=== PATIENT | female | born 1985 | race Caucasian/White ===

== ENCOUNTER 2016-10-11 21:39 | Emergency (ER) | payer MEDICAID ==
[~2016-10-11] VITALS: Ht 149.9 cm; Wt 73.0 kg
[~2016-10-11 21:39] MED LIST: ACET500C5 PO; CETI10CA PO; GUAI118L94 PO; IBUP-1542 PO
[2016-10-11 21:43] VITALS: Ht 149.9 cm; Wt 73.0 kg
[2016-10-11] MEDS ORDERED: ACETAMINOPHEN 500 MG TAB PO STA (23:13)
--- NOTE | 2016-10-11 23:30 | ERD ---
ER Documentation Chief Complaint Date/Time DATE: 10/11/16 TIME: 23:29 Chief Complaint 8 wks with vag. bleed x 5 days. HPI 31-year-old female presents to emergency department for complains of pelvic pain and vaginal bleeding for 5 days. Patient's approximate 8 weeks . Patient states that she fell yesterday on her knees, she was worried about her baby. Patient denies any knee pain at this time. Patient is complains of pelvic pain, cramping pain, 4/10 scale, accompanying the vaginal bleeding, patient states that she is spotting. Patient denies any flank pain. Patient denies any fever or chills. Patient denies any nausea vomiting. Patient did not take any medications for pain. ROS All systems reviewed and are negative except as per history of present illness. Medications Home Meds Active Scripts Acetaminophen* (Tylophen*) 500 Mg Capsule, 1 CAP PO Q6H Y for PAIN AND OR ELEVATED TEMP, #20 CAP Prov:BOGDAN BRYAN NP 11/05/15 Ibuprofen* (Motrin*) 600 Mg Tab, 600 MG PO Q6H Y for PAIN AND OR ELEVATED TEMP, #30 TAB Prov:BOGDAN BRYAN NP 11/05/15 Cetirizine Hcl* (Zyrtec*) 10 Mg Capsule, 10 MG PO DAILY, #30 TAB.CHEW Prov:BOGDAN BRYAN NP 11/05/15 Guaifenesin-Codeine Phosphate* (Guaifenesin* with Codeine Liq) 120 Ml Liquid, 5 ML PO Q4H for COUGH, #120 ML Prov:BOGDAN BRYAN NP 11/05/15 Reported Medications [none] Unknown Strength No Conflict Check 11/05/15 Allergies Allergies: Coded Allergies: No Known Allergy (Unverified , 11/05/15) PMhx/Soc Medical and Surgical Hx: pt denies Surgical Hx History of Surgery: No Anesthesia Reaction: No Hx Neurological Disorder: No Hx Respiratory Disorders: No Hx Cardiac Disorders: No Hx Psychiatric Problems: No Hx Miscellaneous Medical Probl: Yes (DM) Hx Alcohol Use: No Hx Substance Use: No Hx Tobacco Use: No Smoking Status: Never smoker FmHx Family History: No coronary disease, No diabetes, No other Physical Exam Vitals Vital Signs Date Time Temp Pulse Resp B/P Pulse Ox O2 Delivery O2 Flow Rate FiO2 10/11/16 21:43 99.3 90 20 167/92 99 Physical Exam GENERAL: The patient is well developed and appropriate for usual state of health, in no apparent distress. CHEST: Clear to auscultation bilaterally. There are no rales, wheezes or rhonchi. HEART: Regular rate and rhythm. No murmurs, clicks, rubs or gallops. No S3 or S4. ABDOMEN: Soft, nontender and nondistended. Good bowel sounds. No rebound or guarding. No gross peritonitis. No gross organomegaly or masses. No Pastor sign or McBurney point tenderness. BACK: No midline or flank tenderness. EXTREMITIES: Equal pulses bilaterally. There is no peripheral clubbing, cyanosis or edema. No focal swelling or erythema. Full range of motion. Grossly neurovascularly intact. NEURO: Alert and oriented. Cranial nerves 2-12 intact. Motor strength in all 4 extremities with 5/5 strength. Sensation grossly intact. Normal speech and gait. SKIN: There is no apparent rash or petechia. The skin is warm and dry. HEMATOLOGIC AND LYMPHATIC: There is no evidence of excessive bruising or lymphedema. No gross cervical, axillary, or inguinal lymphadenopathy. VAGINAL: Small amount of blood in the vaginal vault, no cervical motion tenderness or adnexal tenderness noted. Cervical os is closed. Result Diagram: 10/11/16 2330 Results 24 hrs Laboratory Tests Test 10/11/16 23:23 10/11/16 23:30 Urine Bacteria FEW Urine Bilirubin NEGATIVE Urine Clarity SL HAZY Urine Color LT. YELLOW Urine Glucose NEGATIVE% Urine Hemoglobin 3+ Urine Ketones NEGATIVE Urine Leukocyte Esterase 1+ Urine Microscopic RBC 5-10/HPF Urine Microscopic WBC 5-10/HPF Urine Nitrite NEGATIVE Urine Specific [place] <=1.005 Urine Squamous Epithelial Cells FEW Urine Total Protein NEGATIVE Urine Urobilinogen 0.2 E.U./dL Urine pH 6.0 Basophils # 0.010^3/ul Basophils % 0.3% Beta HCG, Quantitative 8368.9mIU/ml Eosinophils # 0.210^3/ul Eosinophils % 2.4% Hematocrit 38.9% Hemoglobin 13.4g/dl Lymphocytes # 3.210^3/ul Lymphocytes % 37.8% Mean Corpuscular Hemoglobin 30.2pg Mean Corpuscular Hemoglobin Concent 34.5g/dl Mean Corpuscular Volume 87.8fl Mean Platelet Volume 8.1fl Monocytes # 0.610^3/ul Monocytes % 7.1% Neutrophils # 4.510^3/ul Neutrophils % 52.4% Nucleated Red Blood Cells # 0.010^3/ul Nucleated Red Blood Cells % 0.0/100WBC Platelet Count 07303^3/UL Red Blood Count 4.4410^6/ul Red Cell Distribution Width 12.1% White Blood Count 8.510^3/ul Current Medications Medications (Trade) Dose Ordered Sig/Jayna Route PRN Reason Start Time Stop Time Status Last Admin Dose Admin Acetaminophen (Tylenol Tab) 500 mg ONCE STAT PO 10/11/16 23:13 10/11/16 23:14 DC 10/11/16 23:24 Patient was given medication for pain here in emergency department, after treatment, patient verbalized feeling much better. Patient's pain is improved. PROCEDURE: Obstetrical ultrasound. CLINICAL INDICATION: Vaginal bleeding. TECHNIQUE: Multiple sonographic images of the pelvis were obtained with transabdominal and endovaginal technique. Images were obtained with arrington scale and color Doppler. COMPARISON: None. FINDINGS: There is an intrauterine gestational sac with no pole or yolk sac identified. The mean sac diameter averages 2.00 cm, compatible with 6 weeks and 6 days gestation. No subchorionic collection is identified. There is no pelvic free fluid. The right ovary measures 3.4 x 2.2 x 2.8 cm and the left ovary measures 2.8 x 1.4 x 1.9 cm. There is normal flow to both ovaries. There is no suspicious adnexal mass identified. IMPRESSION: Intrauterine gestational sac with no pole or yolk sac identified, compatible with 6 weeks and 6 days. Short-term follow-up ultrasound is recommended. .Cecil Landa MD, MD Date Time Electronically viewed and signed by .Cecil Landa MD, MD on 10/12/2016 00:30 .T/ CC: BOGDAN BRYAN [employer] Procedures/MDM Medical Decision Making: Patients vaginal bleeding is most likely consistent of possible threatened . Patient does not show any evidence of hypovolemic shock. Patients hemoglobin and hematocrit is stable. There is low suspicion for ectopic . JOSÉ MANUEL results show 6 weeks no pole or sac, possible early BetaHCG Quantitative is3 for The patient is Rh+, does not need RhoGAM this time. There is no signs of symptoms of dehydration. There is low suspicion for sepsis. Patient appears well and is hemodynamically stable. Patient also has urinary tract infection will be also treated for this. No symptoms of pyelonephritis. Disposition: Home. Condition: Stable Disposition: Tylenol, Keflex Instructions: Patient is advised to do bed rest, avoid heavy lifting, and avoid having sex until cleared by OB doctor. Patient is advised to follow up with OB doctor or here at the ER in 48 hours for reevaluation of symptoms, repeat beta HCG quantitative and ultrasound. Patient is advised that is symptoms are worst, severe bleeding, dizziness, severe abdominal pain, fever, worst signs and symptoms to return to the emergency department immediately. Departure Diagnosis: Primary Impression: Vaginal bleeding Additional Impressions: Intrauterine UTI (urinary tract infection) Urinary tract infection type: acute cystitis Hematuria presence: without hematuria Qualified Code: N30.00 - Acute cystitis without hematuria Condition: Stable Patient Instructions: Possible Miscarriage (Threatened ), Understanding Urinary Tract Infections (UTIs) Additional Instructions: Patient is advised to do bed rest, avoid heavy lifting, and avoid having sex until cleared by OB doctor. Patient is advised to follow up with OB doctor or here at the ER in 48 hours for reevaluation of symptoms, repeat beta HCG quantitative and ultrasound. Patient is advised that is symptoms are worst, severe bleeding, dizziness, severe abdominal pain, fever, worst signs and symptoms to return to the emergency department immediately. BOGDAN BRYAN NP Oct 11, 2016 23:30
[2016-10-12 00:16] LABS: ADD UMIC YES; URINE BILIRUBIN (Dip) NEGATIVE (NEGATIVE); URINE BLOOD (Dip) 3+ (NEGATIVE); URINE COLOR LT. YELLOW (YELLOW); URINE GLUCOSE (Dip) NEGATIVE (NEGATIVE); URINE KETONES (Dip) NEGATIVE (NEGATIVE); URINE LEUKOCYTE ESTERASE (Dip) 1+ (NEGATIVE); URINE NITRITE (Dip) NEGATIVE (NEGATIVE); URINE TOTAL PROTEIN (Dip) NEGATIVE (NEGATIVE); URINE UROBILINOGEN (Dip) 0.2 E.U./dL (0.1-1.0)
--- NOTE | 2016-10-12 00:30 | RADRPT ---
PROCEDURE: Obstetrical ultrasound. CLINICAL INDICATION: Vaginal bleeding. TECHNIQUE: Multiple sonographic images of the pelvis were obtained with transabdominal and endova ginal technique. Images were obtained with arrington scale and color Doppler. COMPARISON: None. FINDINGS: There is an intrauterine gestational sac with no pole or yolk sac identified. The mean sac di ameter averages 2.00 cm, compatible with 6 weeks and 6 days gestation. No subchorionic collection i s identified. There is no pelvic free fluid. The right ovary measures 3.4 x 2.2 x 2.8 cm and the left ovary measu res 2.8 x 1.4 x 1.9 cm. There is normal flow to both ovaries. There is no suspicious adnexal mass identified. IMPRESSION: Intrauterine gestational sac with no pole or yolk sac identified, compatible with 6 weeks and 6 days. Short-term follow-up ultrasound is recommended. .Cecil Landa MD, MD Date Time Electronically viewed and signed by .Cecil Landa MD, on 10/12/2016 00:30 .T/
[2016-10-12 00:35] LABS: BACTERIA,URINE FEW; SQUAMOUS EPITHELIAL CELL,UR FEW
[2016-10-12 00:44] LABS: BASOPHILS % 0.3 % (0.0-2.0); EOSINOPHILS # 0.2 10^3/ul (0.0-0.5); EOSINOPHILS % 2.4 % (0.0-7.0); HEMATOCRIT 38.9 % (37.0-47.0); HEMOGLOBIN 13.4 g/dl (12.0-16.0); LYMPHOCYTES # 3.2 10^3/ul (0.8-2.9); LYMPHOCYTES % 37.8 % (15.0-51.0); MEAN CORPUSCULAR HEMOGLOBIN 30.2 pg (29.0-33.0); MEAN CORPUSCULAR HGB CONC 34.5 g/dl (32.0-37.0); MEAN CORPUSCULAR VOLUME 87.8 fl (82.0-101.0); MEAN PLATELET VOLUME 8.1 fl (7.4-10.4); MONOCYTE # 0.6 10^3/ul (0.3-0.9); MONOCYTES % 7.1 % (0.0-11.0); NEUTROPHIL # 4.5 10^3/ul (1.6-7.5); NEUTROPHILS % 52.4 % (39.0-77.0); PLATELET COUNT 292 10^3/UL (140-440); RED BLOOD COUNT 4.44 10^6/ul (4.20-5.40); RED CELL DISTRIBUTION WIDTH 12.1 % (11.5-14.5); UNCORRECTED WBC 8.5 10^3/ul (4.8-10.8); WHITE BLOOD COUNT 8.5 10^3/ul (4.8-10.8)
[2016-10-12 00:45] LABS: CONDITION 1
[2016-10-12] MEDS ORDERED: ACET500C5 PO (01:09)
[2016-10-12] MEDS ORDERED: CEPH-443 PO (01:09)
[2016-10-12 01:19] VITALS: BP 119/80; PULSE 84; RESP 18; TEMP 97.9
== END 2016-10-12 02:17 | disposition home or self-care (01) ==
LOC: FTE 21:39
DX: O20.9 Hemorrhage in early pregnancy, unspecified (principal); O23.11 Infections of bladder in pregnancy, first trimester; O24.111 Pre-existing type 2 diabetes mellitus, in pregnancy, first trimester; R10.2 Pelvic and perineal pain; Z3A.01 Less than 8 weeks gestation of pregnancy
CPT/HCPCS: 36415; 76801; 76817; 81001; 81003; 84702; 85025; 86900; 86901; Z7502; Z7610

== ENCOUNTER 2016-10-15 21:22 | Emergency (ER) | payer MEDICAID ==
[~2016-10-15] VITALS: Ht 152.4 cm; Wt 73.5 kg
[~2016-10-15 21:22] MED LIST changes: +CEPH-443 PO
[2016-10-15 21:27] VITALS: Ht 152.4 cm; Wt 73.5 kg
[2016-10-15] MEDS ORDERED: SOD CHLORIDE 0.9% 1,000 ML IV STA (22:41)
[2016-10-15] MEDS ORDERED: morphine 2 MG INJ IV ONE (23:00)
[2016-10-15 23:45] LABS: BASOPHILS % 0.4 % (0.0-2.0); EOSINOPHILS # 0.1 10^3/ul (0.0-0.5); EOSINOPHILS % 1.7 % (0.0-7.0); HEMATOCRIT 40.9 % (37.0-47.0); HEMOGLOBIN 14.1 g/dl (12.0-16.0); LYMPHOCYTES # 3.4 10^3/ul (0.8-2.9); MEAN CORPUSCULAR HEMOGLOBIN 30.6 pg (29.0-33.0); MEAN CORPUSCULAR HGB CONC 34.5 g/dl (32.0-37.0); MEAN CORPUSCULAR VOLUME 88.9 fl (82.0-101.0); MONOCYTE # 0.6 10^3/ul (0.3-0.9); MONOCYTES % 6.7 % (0.0-11.0); NEUTROPHIL # 4.7 10^3/ul (1.6-7.5); NEUTROPHILS % 53.2 % (39.0-77.0); PLATELET COUNT 282 10^3/UL (140-440); RED CELL DISTRIBUTION WIDTH 12.6 % (11.5-14.5); UNCORRECTED WBC 8.8 10^3/ul (4.8-10.8); WHITE BLOOD COUNT 8.8 10^3/ul (4.8-10.8)
[2016-10-15 23:48] LABS: CONDITION 1
[2016-10-15] MEDS ORDERED: morphine 4 MG/ML VIAL IV STA (23:49)
[2016-10-15] MEDS ORDERED: ONDANSETRON 4 MG INJ IV STA (23:49)
--- NOTE | 2016-10-15 23:52 | ERD ---
ER Documentation Chief Complaint Date/Time DATE: 10/15/16 TIME: 23:50 Chief Complaint 6 wks , vag bleeding w/ pelvic pain (ELHAM EPSTEIN PA-C) HPI Patient is a 31-year-old female with a past medical history of diabetes who is who presents to the ED with increase in pelvic pain and vaginal bleed. She states that she was here on Wednesday with vaginal bleed. However she states that the vaginal bleeding has increased and she has passed a lot of bleeding yesterday. However she states that her pelvic pain has increased and the Tylenol has not helped with her pain. She denies fever or chills. She denies back pain, abdominal pain, nausea, vomiting or diarrhea. She denies chest pain, cough, shortness of breath or difficulty breathing. She denies leg pain or swelling. (ELHAM EPSTEIN PA-C) ROS All systems reviewed and are negative except as per history of present illness. (ELHAM EPSTEIN PA-C) Medications Home Meds Active Scripts Hydrocodone/Acetaminophen ([place] 5-325 Tablet) 1 Each Tablet, 1 TAB PO Q6H Y for PAIN, #15 TAB Prov:SAUL THOMAS PA-C 10/16/16 Acetaminophen* (Tylophen*) 500 Mg Capsule, 1 CAP PO Q6H Y for PAIN AND OR ELEVATED TEMP, #20 CAP Prov:BOGDAN BRYAN NP 10/12/16 Cephalexin* (Keflex*) 500 Mg Capsule, 500 MG PO QID for 7 Days, CAP Prov:BOGDAN BRYAN NP 10/12/16 Acetaminophen* (Tylophen*) 500 Mg Capsule, 1 CAP PO Q6H Y for PAIN AND OR ELEVATED TEMP, #20 CAP Prov:BOGDAN BRYAN NP 11/05/15 Ibuprofen* (Motrin*) 600 Mg Tab, 600 MG PO Q6H Y for PAIN AND OR ELEVATED TEMP, #30 TAB Prov:BOGDAN BRYAN NP 11/05/15 Cetirizine Hcl* (Zyrtec*) 10 Mg Capsule, 10 MG PO DAILY, #30 TAB.CHEW Prov:BOGDAN BRYAN NP 11/05/15 Guaifenesin-Codeine Phosphate* (Guaifenesin* with Codeine Liq) 120 Ml Liquid, 5 ML PO Q4H for COUGH, #120 ML Prov:BOGDAN BRYAN NP 11/05/15 Reported Medications [none] Unknown Strength No Conflict Check 11/05/15 Allergies Allergies: Coded Allergies: No Known Allergy (Unverified , 11/05/15) PMhx/Soc History of Surgery: Yes (CS X1) Anesthesia Reaction: No Hx Neurological Disorder: No Hx Respiratory Disorders: No Hx Cardiac Disorders: No Hx Psychiatric Problems: No Hx Miscellaneous Medical Probl: Yes (DM 2) Hx Alcohol Use: No Hx Substance Use: No Hx Tobacco Use: No Smoking Status: Never smoker (ELHAM EPSTEIN PA-C) Physical Exam Vitals Vital Signs Date Time Temp Pulse Resp B/P Pulse Ox O2 Delivery O2 Flow Rate FiO2 10/15/16 21:27 98.3 93 20 133/70 100 (SAUL THOMAS PA-C) Physical Exam GENERAL: Well-developed, well-nourished female. Appears in mild distress. HEAD: Normocephalic, atraumatic. EYES: Pupils are equally reactive bilaterally. EOMs grossly intact. No conjunctival erythema. ENT: Moist mucous membranes. No uvula deviation. No kissing tonsils. No exudates. NECK: Supple. No lymphadenopathy or thyromegaly. No meningismus. negative kernig. negative brudinski. LUNG: Clear to auscultation bilaterally. No rhonchi, wheezing, rales or coarse breath sounds. HEART: Regular rate and rhythm. No murmurs, rubs or gallops. ABDOMEN: No scars, ecchymosis or rashes noted. Soft, nontender, and nondistended. Positive bowel sounds in all four quadrants. No rebound tenderness , no guarding. (-) McBurneys point tenderness. No CVA tenderness. Bilateral pelvic tenderness BACK: No midline tenderness. Extremities: Equal pulses bilaterally. No peripheral clubbing, cyanosis or edema. No unilateral leg swelling. NEUROLOGIC: Alert and oriented. Moving all four extremities. 5/5 strength in all extremities. Normal speech. Steady gait. SKIN: Normal color. Warm and dry. No rashes or lesions. Capillary refill < 2 seconds (ELHAM EPSTEIN PA-C) Result Diagram: 10/15/16 2310 Results 24 hrs Laboratory Tests Test 10/15/16 23:10 Basophils # 0.010^3/ul Basophils % 0.4% Beta HCG, Quantitative 4513.4mIU/ml Eosinophils # 0.110^3/ul Eosinophils % 1.7% Hematocrit 40.9% Hemoglobin 14.1g/dl Lymphocytes # 3.410^3/ul Lymphocytes % 38.0% Mean Corpuscular Hemoglobin 30.6pg Mean Corpuscular Hemoglobin Concent 34.5g/dl Mean Corpuscular Volume 88.9fl Mean Platelet Volume 8.0fl Monocytes # 0.610^3/ul Monocytes % 6.7% Neutrophils # 4.710^3/ul Neutrophils % 53.2% Nucleated Red Blood Cells # 0.010^3/ul Nucleated Red Blood Cells % 0.0/100WBC Platelet Count 09214^3/UL Red Blood Count 4.6010^6/ul Red Cell Distribution Width 12.6% Urine Bacteria MODERATE Urine Bilirubin NEGATIVE Urine Clarity CLOUDY Urine Color RED Urine Glucose NEGATIVE% Urine Hemoglobin 3+ Urine Ketones NEGATIVE Urine Leukocyte Esterase TRACE Urine Microscopic RBC >200/HPF Urine Microscopic WBC 5-10/HPF Urine Nitrite NEGATIVE Urine Specific [place] 1.010 Urine Squamous Epithelial Cells FEW Urine Total Protein 1+ Urine Urobilinogen 0.2 E.U./dL Urine pH 8.5 White Blood Count 8.810^3/ul Current Medications Medications (Trade) Dose Ordered Sig/Jayna Route PRN Reason Start Time Stop Time Status Last Admin Dose Admin Sodium Chloride (NS) 1,000 ml @ 1,000 mls/hr Q1H STAT IV 10/15/16 22:41 10/15/16 23:40 DC 10/15/16 22:57 Morphine Sulfate (morphine) 2 mg ONCE ONCE IV 10/15/16 23:00 10/15/16 23:01 DC 10/15/16 22:57 Morphine Sulfate (morphine) 4 mg ONCE STAT IV 10/15/16 23:49 10/15/16 23:50 DC 10/15/16 23:54 Ondansetron HCl (Zofran Inj) 4 mg ONCE STAT IV 10/15/16 23:49 10/15/16 23:50 DC 10/15/16 23:53 (SAUL THOMAS PA-C) Procedures/MDM ER COURSE: I kept the patient and/or family informed of laboratory and diagnostic imaging results throughout the emergency room course. EKG, MONITORS, & DIAGNOSTIC IMAGING: [place] [id number] Radiology Main Line: [phone] DIAGNOSTIC IMAGING REPORT Patient: LEEROY BYERS : 1985 Age: 31 Sex: F MR #: [id number] DOS: 10/15/16 2241 Ordering MD: ELHAM EPSTEIN PA-C Location: [facility] Room/Bed: PROCEDURE: US OB. CLINICAL INDICATION: Vaginal bleeding TECHNIQUE: Transabdominal views of the pelvis are available for review. COMPARISON: There are no similar studies submitted for comparison. FINDINGS: The uterus measures 8.7 x 4.2 x 6.3 cm. There is no evidence of a gestational sac. The endometrium is normal in appearance measuring up to 13 mm. The ovaries are not seen. No adnexal masses are identified. There is no pelvic free fluid. IMPRESSION: No evidence of a gestational sac. Continued follow-up is recommended along with serial beta HCGs. RPTAT: HIKT .Matthew Mccracken MD, MD Date Time Electronically viewed and signed by .Matthew Mccracken MD, on 10/16/2016 00:01 .T/ CC: ELHAM EPSTEIN PA-C MEDICATIONS: IV fluids, morphine, Zofran patient tolerated the edition well with no adverse reaction. Patient stated improvement in symptoms. LAB INTERPRETATION: CBC showed no evidence of systemic infection or severe anemia. MEDICAL DECISION MAKING: This is a 31-year-old female who is who presents with vaginal bleeding and pelvic pain. Vital signs were reviewed. Patient is afebrile. Patient is not hypoxic. Patient is not toxic. Patient is having a threatened . Low suspicion for ovarian torsion, PID, tuboovarian abscess, ectopic , bowel obstruction, pyelonephritis, UTI, appendicitis, cervicitis, septic , molar , HELLP syndrome, preeclampsia, eclampsia, placenta previa, placenta abruptia. Urine and BHCG pending. Patient given to Saul Mccarthy who will review the rest of her laboratory studies. Please see her note for the rest of the MDM and discharge. (ELHAM EPSTEIN PA-C) Addendum: This patient was signed out to me. Pelvic exam was unremarkable, there is scant bleeding, ALT is closed. This 31-year-old female previously had a gestational sac without heart tones on ultrasound, she comes in today with a history of vaginal bleeding, previous provider signed out the hCG in the urine to me. Beta quant is about half the amount is previous visit and her ultrasound shows an empty uterus, consistent with a complete . She is hemodynamically stable, does not show signs of infection and will be discharged home. The urine was reviewed, she does have greater than 200 red blood cells with a few white blood cells, consistent with her vaginal bleeding, this is likely not a urinary tract infection. (SAUL THOMAS PA-C) Departure Diagnosis: Primary Impression: Vaginal bleeding in patient at less than 20 weeks gestation Additional Impression: Threatened Condition: Stable ELHAM EPSTEIN PA-C Oct 15, 2016 23:52 SAUL THOMAS PA-C Oct 16, 2016 00:59
[2016-10-16 00:01] LABS: ADD UMIC YES; URINE BILIRUBIN (Dip) NEGATIVE (NEGATIVE); URINE BLOOD (Dip) 3+ (NEGATIVE); URINE COLOR RED (YELLOW); URINE GLUCOSE (Dip) NEGATIVE (NEGATIVE); URINE KETONES (Dip) NEGATIVE (NEGATIVE); URINE LEUKOCYTE ESTERASE (Dip) TRACE (NEGATIVE); URINE NITRITE (Dip) NEGATIVE (NEGATIVE); URINE TOTAL PROTEIN (Dip) 1+ (NEGATIVE); URINE UROBILINOGEN (Dip) 0.2 E.U./dL (0.1-1.0)
--- NOTE | 2016-10-16 00:02 | RADRPT ---
PROCEDURE: US OB. CLINICAL INDICATION: Vaginal bleeding TECHNIQUE: Transabdominal views of the pelvis are available for review. COMPARISON: There are no similar studies submitted for comparison. FINDINGS: The uterus measures 8.7 x 4.2 x 6.3 cm. There is no evidence of a gestational sac. The endometrium is normal in appearance measuring up to 13 mm. The ovaries are not seen. No adnexal masses are identified. There is no pelvic free fluid. IMPRESSION: No evidence of a gestational sac. Continued follow-up is recommended along with serial beta HCGs. RPTAT: HIKT .Matthew Mccracken MD, MD Date Time Electronically viewed and signed by .Matthew Mccracken MD, on 10/16/2016 00:01 .T/
[2016-10-16] MEDS ORDERED: ACET500C5 PO (00:09)
[2016-10-16 00:53] LABS: BACTERIA,URINE MODERATE; SQUAMOUS EPITHELIAL CELL,UR FEW; URINE RBCS >200 /HPF (0)
[2016-10-16] MEDS ORDERED: HYDR-906 PO (01:02)
[2016-10-16 01:57] VITALS: BP 120/72; PULSE 80; RESP 18; TEMP 98.3
== END 2016-10-16 02:00 | disposition home or self-care (01) ==
LOC: FTE 21:22
DX: O20.9 Hemorrhage in early pregnancy, unspecified (principal); O20.0 Threatened abortion; R10.2 Pelvic and perineal pain; E11.9 Type 2 diabetes mellitus without complications; O24.111 Pre-existing type 2 diabetes mellitus, in pregnancy, first trimester
CPT/HCPCS: 76801; 81001; 84702; 85025; 86900; 86901; J2270; J2405; J7030; 36415; 81003; 96374; 96375; 96376

== ENCOUNTER 2016-10-19 17:57 | Emergency (ER) | payer SELFPAY ==
[~2016-10-19] VITALS: Ht 162.6 cm; Wt 71.0 kg
[~2016-10-19 17:57] MED LIST changes: +HYDR-906 PO
[2016-10-19 18:22] VITALS: Ht 162.6 cm; Wt 71.0 kg
== END 2016-10-19 21:35 | disposition left against medical advice (07) ==
LOC: FTE 17:57
DX: Z53.21 Procedure and treatment not carried out due to patient leaving prior to being seen by health care provider (principal)

== ENCOUNTER 2017-09-09 18:02 | Emergency (ER) | payer MEDICAID ==
[~2017-09-09] VITALS: Wt 72.2 kg
[2017-09-09] MEDS ORDERED: AMOX500C2 PO (18:41)
[2017-09-09] MEDS ORDERED: IBUP-1542 PO (18:41)
--- NOTE | 2017-09-09 18:45 | ERD ---
ER Documentation Chief Complaint Chief Complaint SORE THROAT/BODY ACHE/HEADACHE X2 DAYS HPI [age]-year-old female presents with a sore throat and body aches for the last 2 days. She is a bitemporal headache as well. She denies any difficulty swallowing or difficulty breathing, vomiting, abdominal pain, urinary complaints. There are many people with similar symptoms in the household. ROS All systems reviewed and are negative except as per history of present illness. Medications Home Meds Active Scripts Ibuprofen* (Motrin*) 600 Mg Tab, 600 MG PO Q6, #15 TAB Prov:JAMI BRASWELL MD 09/09/17 Amoxicillin* (Amoxicillin*) 500 Mg Cap, 500 MG PO TID for 10 Days, CAP Prov:JAMI BRASWELL MD 09/09/17 Hydrocodone/Acetaminophen ([place] 5-325 Tablet) 1 Each Tablet, 1 TAB PO Q6H Y for PAIN, #15 TAB Prov:SAUL THOMAS PA-C 10/16/16 Acetaminophen* (Tylophen*) 500 Mg Capsule, 1 CAP PO Q6H Y for PAIN AND OR ELEVATED TEMP, #20 CAP Prov:BOGDAN BRYAN NP 10/12/16 Cephalexin* (Keflex*) 500 Mg Capsule, 500 MG PO QID for 7 Days, CAP Prov:BOGDAN BRYAN NP 10/12/16 Acetaminophen* (Tylophen*) 500 Mg Capsule, 1 CAP PO Q6H Y for PAIN AND OR ELEVATED TEMP, #20 CAP Prov:BOGDAN BRYAN NP 11/05/15 Ibuprofen* (Motrin*) 600 Mg Tab, 600 MG PO Q6H Y for PAIN AND OR ELEVATED TEMP, #30 TAB Prov:BOGDAN BRYAN NP 11/05/15 Cetirizine Hcl* (Zyrtec*) 10 Mg Capsule, 10 MG PO DAILY, #30 TAB.CHEW Prov:BOGDAN BRYAN NP 11/05/15 Guaifenesin-Codeine Phosphate* (Guaifenesin* with Codeine Liq) 120 Ml Liquid, 5 ML PO Q4H for COUGH, #120 ML Prov:BOGDAN BRYAN NP 11/05/15 Reported Medications [none] Unknown Strength No Conflict Check 11/05/15 Allergies Allergies: Coded Allergies: No Known Allergy (Unverified , 11/05/15) PMhx/Soc History of Surgery: Yes (CS X1) Anesthesia Reaction: No Hx Neurological Disorder: No Hx Respiratory Disorders: No Hx Cardiac Disorders: No Hx Psychiatric Problems: No Hx Miscellaneous Medical Probl: Yes (DMII) Hx Alcohol Use: No Hx Substance Use: No Hx Tobacco Use: No Physical Exam Vitals Vital Signs Date Time Temp Pulse Resp B/P Pulse Ox O2 Delivery O2 Flow Rate FiO2 09/09/17 18:04 98.9 98 20 141/92 98 Physical Exam Const: [] Alert, not ill-appearing. Head: Atraumatic Eyes: Normal Conjunctiva ENT: Normal External Ears, Nose and Mouth. Erythema in the posterior oropharynx with slight exudate. Airway patent uvula midline. Slight tender anterior cervical lymphadenitis. Neck: Full range of motion..~ No meningismus. Resp: Clear to auscultation bilaterally Cardio: Regular rate and rhythm, no murmurs Abd: Soft, non tender, non distended. Normal bowel sounds Skin: No petechiae or rashes Back: No midline or flank tenderness Ext: No cyanosis, or edema Neur: Awake and alert Psych: Normal Mood and Affect Procedures/MDM Patient presents with signs and symptoms of acute pharyngitis without evidence of abscess or airway obstruction.. She will be treated with amoxicillin, ibuprofen, return precautions and primary care follow-up. The patient was stable with no new complaints during the ER course. Clinically, there is no current evidence to suggest meningitis, sepsis, acute abdomen, pneumonia, acute coronary syndrome, pulmonary embolism, or any other emergent condition appearing to require further evaluation or hospitalization. The patient should certainly return for any new or worsening symptoms per the aftercare instructions. They should otherwise follow-up with her primary care doctor for reevaluation this week. Departure Diagnosis: Primary Impression: Pharyngitis Pharyngitis/tonsillitis etiology: unspecified etiology Qualified Code: J02.9 - Pharyngitis, unspecified etiology Additional Impression: URI (upper respiratory infection) URI type: unspecified URI Qualified Code: J06.9 - Upper respiratory tract infection, unspecified type Condition: Stable Patient Instructions: Fever Control (Adult), Pharyngitis, Strep (Presumed) Additional Instructions: Cheque otro vez con tucker doctor primario en el proximo campbell or regresa para mas o nueva simptomas. JAMI BRASWELL MD Sep 09, 2017 18:45
== END 2017-09-09 19:13 | disposition home or self-care (01) ==
LOC: FTE 18:02
DX: J02.9 Acute pharyngitis, unspecified (principal); J06.9 Acute upper respiratory infection, unspecified; E11.9 Type 2 diabetes mellitus without complications
CPT/HCPCS: 99283